=== PATIENT | male | born 1955 | race Caucasian/White ===

== ENCOUNTER 2016-08-04 07:06 | Day surgery (SDC) | payer BC ==
[~2016-08-04 07:06] MED LIST: RINGERS SOLUTION,LACTATED 1,000 ML IV PRN
[2016-08-04] MEDS ORDERED: RINGERS SOLUTION,LACTATED 1,000 ML IV ONE (08:20)
[2016-08-04 10:22] VITALS: BP 120/68
--- NOTE | 2016-08-04 18:50 | OR ---
Operative Report - Dictated Report Narrative: OPERATIVE REPORT DATE OF OPERATION: 08/04/2016 PREOPERATIVE DIAGNOSIS: Family history of colon cancer. No recent dedicated colon studies. POSTOPERATIVE DIAGNOSIS: Scattered sigmoid diverticulosis otherwise normal colonoscopy OPERATION: Colonoscopy SURGEON: Everardo Crespo MD ANESTHESIA: TERRY Morales CRNA INDICATIONS FOR PROCEDURE: The patient is a 60-year-old male referred by Dr. Mccabe. The patient had a normal colonoscopy in 2006. The patient's father had colon cancer at age 65. The patient is currently asymptomatic. FINDINGS: Capacious colon with scattered sigmoid diverticulosis otherwise normal exam to the cecum. NARRATIVE OF PROCEDURE: The patient was identified in the holding area, and prior to the administration of anesthetic, a multidisciplinary timeout was observed. With the patient in the left lateral position and after the administration of intravenous sedation, the perineum was inspected. There was no evidence of pilonidal disease or skin breakdown. The external appearance of the anus was normal. Sphincter tone was good. The flexible fiberoptic colonoscope was inserted into the rectum which was insufflated with air. The rectal mucosa and submucosal vascular pattern appeared normal, the prep was seen to be complete. The scope was advanced through the sigmoid colon which contained several small scattered non-impacted noninflamed diverticular openings. The scope was advanced up the descending colon, and around the splenic flexure where the triangular haustral architecture of the transverse colon was seen. The scope was advanced across the transverse colon, around the hepatic flexure to the cecum, where the confluence of tenia and the ileocecal valve were identified. The mucosa at this level appeared normal. The scope was then slowly withdrawn in a circular fashion so that all aspects of colonic mucosa were inspected. The colon was somewhat capacious in character is slightly redundant course. The haustral architecture appeared well preserved throughout with no evidence of external compression. The mucosa and submucosal vascular pattern appeared normal, specifically there was no gross evidence to suggest colitis or inflammatory bowel disease and no AV malformations were seen. No polyps were encountered. The scope was gradually withdrawn to the level of the rectum. As much insufflated air as possible was removed. The scope was withdrawn from the patient and the procedure terminated. The patient tolerated the anesthetic and procedure well without complication and was transferred back to the ambulatory surgery area awake and in stable condition. The patient remained stable throughout a period of postoperative observation. He denied abdominal discomfort, was able to tolerate by mouth intake, and was up without assistance. I shared the operative findings with the patient and he was given copies of the photographs which appear in the medical record. He was discharged home with instructions not to engage in hazardous activity today, but may resume normal activity tomorrow, and advance diet as tolerated. He is to continue those medications as listed in the history and physical exam. RECOMMENDATION: Colon surveillance in 10 years depending upon findings and symptoms Reviewed and electronically signed
== END 2016-08-04 07:07 | disposition home or self-care (01) ==
LOC: AMB 07:06
PROVIDERS: ATTEND Surgery
PROC: 0DJD8ZZ Inspection of Lower Intestinal Tract, Via Natural or Artificial Opening Endoscopic (ICD-10-PCS; principal; 2016-08-04 08:00)
DX: Z12.11 Encounter for screening for malignant neoplasm of colon (principal); K57.30 Diverticulosis of large intestine without perforation or abscess without bleeding; Z68.27 Body mass index [BMI] 27.0-27.9, adult; Z80.0 Family history of malignant neoplasm of digestive organs

== ENCOUNTER 2017-03-14 08:40 | Emergency (ER) | payer BC ==
[2017-03-14 08:56] VITALS: BP 157/94
--- NOTE | 2017-03-14 09:26 | ERNOTE ---
Lower Extremity HPI - General Lower Extremities Pain: leg: left Time Seen by Provider: 03/14/17 09:17 Source: patient Exam Limitations: no limitations - Immun/Allergies/Home Medications Immunizations: IMMUNIZATION HX Immunizations Up to Date Yes Allergies/Adverse Reactions: Allergies Allergy/AdvReac Type Severity Reaction Status Date / Time No Known Allergies Allergy Verified 03/14/17 08:55 Home Medications: HOME MEDICATIONS Aspirin [Aspirin Enteric Coated] 81 mg PO DAILY 07/27/16 [Last Taken 08/03/16] Naproxen [Naprosyn] 500 mg PO BID #60 tablet 03/14/17 [Last Taken Unknown] - History of Present Illness Narrative: Patient was running and started to notice moderate to severe pain on the left navarro area. He states it was only a 3 mile run but the pain was moderate to severe in intensity. Pain is present on palpation. Occurred: yesterday Location of Incident: other - running on the street Method of Injury: Reports: unknown Loss of Consciousness: Reports: no loss of consciousness Associated Symptoms: Reports: other injuries - painful to palpation Other Injuries: Reports: none Review of Systems - Review of Systems Constitutional: Present: See HPI EYE: Present: no symptoms reported ENT: Present: no symptoms reported Respiratory: Present: no symptoms reported Cardiology: Present: no symptoms reported Gastrointestinal/Abdominal: Present: no symptoms reported Genitourinary: Present: no symptoms reported Musculoskeletal: Present: See HPI Skin: Present: no symptoms reported Neurological: Present: no symptoms reported Endocrine: Present: no symptoms reported Hematologic/Lymphatic: Present: no symptoms reported Psych: Present: no symptoms reported - Patient's Past Medical History Patient History - Medical: Other Patient History - Cardiac/Respiratory: No pertinent hx Patient History - Cancer: Skin, Surgical Treatment Patient History - Surgical Procedures: Cholecystectomy, Colonoscopy, Other Patient History - Other: None - Family History Father Family History - Medical: No pertinent hx Family History - Cardiac/Respiratory: CHF Family History - Cancer: Colon Mother Family History - Medical: Other Family History - Cardiac/Respiratory: Hypertension Family History - Cancer: No pertinent family hx - Social History Living Situations: home Abuse History: No History of abuse Psych History: No pertinent hx Smoking Status: Never smoker Have you smoked in the past 12 months: No Alcohol Use: occasionally Drug Use: none - Immunizations Immunizations Up to Date: Yes Physical Exam - Physical Exam General Appearance: Present: wd/wn, alert, moderate distress Head Exam: Present: normal inspection Eye Exam: Normal inspection: bilateral, PERRL: bilateral Ears, Nose, Throat: Present: normal ENT inspection, H, normal pharynx Neck: Present: normal inspection, nontender Respiratory: Present: no respiratory distress, normal breath sounds, no accessory muscle use, chest nontender, lungs clear Cardiovascular/Chest: Present: regular rate, rhythm, no murmur, normal peripheral pulses Gastrointestinal/Abdominal: Present: normal bowel sounds, nontender, nondistended, soft, no organomegaly Rectal Exam: Present: deferred Back Exam: Present: normal inspection, normal range of motion Extremity Exam: Present: non-tender, normal range of motion, no edema, bony tenderness - along the left tibia Neurological Exam: Present: alert, oriented, normal mood/affect Skin Exam: Present: normal color, warm/dry Lymphatic Exam: Present: no adenopathy ED Progress - Vital Signs Patient's Vital Signs:: I have reviewed the patient's vital signs. Vital Signs: Vital Signs 03/14/17 08:53 Temperature 36.9 C Pulse Rate 57 L Respiratory 14 Rate Blood Pressure 157/94 O2 Sat by Pulse 98 Oximetry - X-Ray X-Ray #1 X-Ray: leg Interpretation: Reviewed by me - Progress/Reassessment Chief Complaint: Lower Extremity Pain/ Injury Plan - Plan Plan: Patient appears to have navarro splints, a common name for fasciitis. Patient will be started on nonsteroidal, he will refrain from running until the pain improves and he may try riding a bicycle to avoid the pounding on the left navarro. An incidental finding on x-ray as well as what appears to be a small metallic fragment along the lateral surface of the left leg that is not tender to palpation. Departure Clinical Impression: Fasciitis - Departure Disposition: Home self-care Condition: Good Instructions: Navarro Splints, [id number] Referrals: Amandeep Mccabe DO [Primary Care Provider] - Prescriptions: Naproxen [Naprosyn] 500 mg PO BID #60 tablet
== END 2017-03-14 09:30 | disposition home or self-care (01) ==
LOC: ER 08:40
DX: M72.9 Fibroblastic disorder, unspecified (principal); Z85.828 Personal history of other malignant neoplasm of skin